=== PATIENT | female | born 1990 | race Two or more races ===

== ENCOUNTER 2025-05-05 14:16 | Emergency (ER) | payer OTHER ==
[~2025-05-05] VITALS: Ht 152.4 cm; Wt 63.5 kg
[2025-05-05] MEDS ORDERED: 8 HOUR650 MG PO (18:37)
== END 2025-05-05 18:54 | disposition home or self-care (01) ==
LOC: ER 14:16
DX: H72.91 Unspecified perforation of tympanic membrane, right ear (principal); Z88.0 Allergy status to penicillin